=== PATIENT | female | born 1990 | race Caucasian/White ===

== ENCOUNTER 2016-07-03 11:29 | Emergency (ER) | payer MEDICAID ==
--- NOTE | 2016-07-03 11:40 | ER Document Report ---
ED Medical Screen (RME) - General Stated Complaint: WEAKNESS,DARK URINE,ITCHING Notes: 25 yo female 31 weeks , c/o vomiting x 2 days. c/o dark urine. no abdominal pain or vaginal bleeding. + generalized pruritis x 2days, no rash. no fever. children sick with viral symptoms. TRAVEL OUTSIDE OF THE [place] IN LAST 30 DAYS: No - Related Data Allergies/Adverse Reactions: acetaminophen [From Vicodin] Allergy (Verified 07/03/16 11:35) hydrocodone [From Vicodin] Allergy (Verified 07/03/16 11:35)
[2016-07-03] MEDS ORDERED: NORMAL SALINE 1000 ML 1,000 ML IV ONE (12:02)
[2016-07-03] MEDS ORDERED: DIPHENHYDRAMINE HCL 50 MG/ML VIAL IV ONE (12:04)
[2016-07-03] MEDS ORDERED: METOCLOPRAMIDE HCL INJ/PF 10 MG/2 ML SDV IV ONE (12:04)
[2016-07-03 13:14] LABS: AMORPHOUS SEDIMENT,URINE TRACE /HPF; APPEARANCE,URINE CLOUDY; BILIRUBIN,URINE NEGATIVE (NEGATIVE); GLUCOSE, URINE NEGATIVE (NEGATIVE); KETONES,URINE TRACE mg/dL (NEGATIVE); LEUKOCYTE ESTERASE,URINE NEGATIVE (NEGATIVE); NITRITE,URINE NEGATIVE (NEGATIVE); PROTEIN,URINE 30 mg/dL (NEGATIVE)
[2016-07-03 13:17] LABS: ABSOLUTE EOSINOPHILS # (AUTO) 0.1 10^3/uL (0.0-0.6); ABSOLUTE LYMPHOCYTES (AUTO) 1.1 10^3/uL (0.5-4.7); ABSOLUTE MONOCYTES (AUTO) 0.7 10^3/uL (0.1-1.4); BASOPHILS % (AUTO) 0.3 % (0-2); HEMATOCRIT 27.8 % (36.0-47.0); HEMOGLOBIN 9.1 g/dL (12.0-15.5); HGB HCT DIFFERENCE -0.5; LYMPHOCYTES % (AUTO) 10.3 % (13-45); MEAN CORPUSCULAR HEMOGLOBIN 28.9 pg (27.0-33.4); MEAN CORPUSCULAR HGB CONC 32.7 g/dL (32.0-36.0); MEAN CORPUSCULAR VOLUME 88 fl (80-97); RED BLOOD COUNT 3.15 10^6/uL (3.72-5.28); RED CELL DISTRIBUTION WIDTH 14.6 % (11.5-14.0); SEGMENTED NEUTROPHILS % (AUTO) 82.4 % (42-78); WHITE BLOOD COUNT 10.9 10^3/uL (4.0-10.5)
[2016-07-03 15:11] LABS: ALANINE AMINOTRANSFERASE 14 U/L (9-52); ALBUMIN 2.6 g/dL (3.5-5.0); ALKALINE PHOSPHATASE 73 U/L (38-126); ANION GAP 9 (5-19); ASPARTATE AMINO TRANSFERASE 31 U/L (14-36); BILIRUBIN,TOTAL 0.4 mg/dL (0.2-1.3); BLOOD UREA NITROGEN 5 mg/dL (7-20); CARBON DIOXIDE 22 mmol/L (22-30); CHLORIDE 109 mmol/L (98-107); GLUCOSE 80 mg/dL (75-110); LIPASE 41.2 U/L (23-300); POTASSIUM 3.9 mmol/L (3.6-5.0); SODIUM 139.5 mmol/L (137-145); TOTAL PROTEIN 5.9 g/dL (6.3-8.2)
--- NOTE | 2016-07-03 15:40 | ER Document Report ---
ED GI/ - General Chief Complaint: Nausea/Vomiting Stated Complaint: WEAKNESS,DARK URINE,ITCHING Mode of Arrival: Ambulatory Information source: Patient Notes: 25-year-old female presents to the emergency department complaining of intermittently persistent nausea and vomiting over last 2 days. Patient reports her 2 young children have had similar symptoms over the past week which have resolved but now she has similar symptoms. Reports is approximately 31 weeks , . States has been having difficulty keeping oral fluids down and has noted her urine to be dark. Also reports had generalized itchiness yesterday without a rash or any other symptoms but appears to have resolved. Denies fever, blood in emesis or stool, vaginal bleeding or discharge , abdominal or pelvic pain. TRAVEL OUTSIDE OF THE [place] IN LAST 30 DAYS: No - HPI Patient complains to provider of: Vomiting Onset: Yesterday Timing/Duration: Intermittent, Persistent Quality of pain: No pain Severity in ED: Mild Pain Level: Denies Vaginal bleeding (Compared to normal period): None Menstrual period history: Similar symptoms previously: Yes Recently seen / treated by doctor: No - Related Data Allergies/Adverse Reactions: acetaminophen [From Vicodin] Allergy (Verified 07/03/16 11:35) hydrocodone [From Vicodin] Allergy (Verified 07/03/16 11:35) Past Medical History - General Information source: Patient - Social History Smoking Status: Never Smoker Chew tobacco use (# tins/day): No Frequency of alcohol use: None Drug Abuse: [place] Lives with: Family Family History: Reviewed & Not Pertinent Patient has suicidal ideation: No Patient has homicidal ideation: No - Medical History Medical History: Negative Renal/ Medical History: Denies: Hx Peritoneal Dialysis Surgical Hx: Negative - Immunizations Hx Diphtheria, Pertussis, Tetanus Vaccination: Yes Review of Systems - Review of Systems Constitutional: No symptoms reported EENT: No symptoms reported Cardiovascular: No symptoms reported Respiratory: No symptoms reported Gastrointestinal: See HPI Genitourinary: No symptoms reported Female Genitourinary: See HPI Musculoskeletal: No symptoms reported Skin: See HPI Hematologic/Lymphatic: No symptoms reported Neurological/Psychological: No symptoms reported -: Yes All other systems reviewed and negative Physical Exam - Vital signs Vitals: Temp Pulse Resp BP Pulse Ox 97.9 F 98 18 124/68 98 07/03/16 11:36 07/03/16 11:36 07/03/16 11:36 07/03/16 11:36 07/03/16 11:36 Interpretation: Normal - General General appearance: Appears well, Alert In distress: None - HEENT Head: Normocephalic, Atraumatic Eyes: Normal Pupils: PERRL - Respiratory Respiratory status: No respiratory distress Chest status: Nontender Breath sounds: Normal Chest palpation: Normal - Cardiovascular Rhythm: Regular Heart sounds: Normal auscultation Murmur: No Pulses: Normal: Radial, Posterior tibial, Dorsalis pedis Normal capillary refill: Yes - Abdominal Inspection: Normal, Gravid female Distension: No distension Bowel sounds: Normal Tenderness: Nontender. No: Tender, McBurney's point, Vaughn's sign, Guarding, Rebound, Other Organomegaly: No organomegaly - Back Back: Normal, Nontender - Extremities General upper extremity: Normal inspection, Nontender, Normal color, Normal ROM , Normal strength, Normal temperature. No: Tender, Edema General lower extremity: Normal inspection, Nontender, Normal color, Normal ROM , Normal strength, Normal temperature, Normal weight bearing. No: Tender, Edema - Neurological Neuro grossly intact: Yes Cognition: Normal Orientation: AAOx4 [place] Coma Scale Eye Opening: Spontaneous [place] Coma Scale Verbal: Oriented [place] Coma Scale Motor: Obeys Commands Sha Coma Scale Total: 15 Speech: Normal Motor strength normal: LUE, RUE, LLE, RLE Sensory: Normal - Psychological Associated symptoms: Normal affect, Normal mood - Skin Skin Temperature: Warm Skin Moisture: Dry Skin Color: Normal Course - Re-evaluation Re-evalutation: 07/03/16 15:44 Patient hemodynamically stable, in no distress, afebrile. Labs show some mild dehydration otherwise no significant or emergent findings. Patient states feels much better after normal saline bolus and is tolerating oral fluids without difficulty or vomiting after dose of Reglan and Benadryl. Patient appears stable for discharge and agrees with home care, follow-up with PCP/[facility]- [facility], and ED return precautions. - Vital Signs Vital signs: Temp Pulse Resp BP Pulse Ox 98.0 F 84 18 106/56 L 99 07/03/16 16:00 07/03/16 16:00 07/03/16 11:36 07/03/16 16:00 07/03/16 16:00 - Laboratory Result Diagrams: 07/03/16 12:50 07/03/16 14:32 Laboratory results interpreted by me: 07/03/16 07/03/16 07/03/16 12:35 12:50 12:50 WBC 10.9 H RBC 3.15 L Hgb 9.1 L Hct 27.8 L RDW 14.6 H Seg Neutrophils % 82.4 H Lymphocytes % 10.3 L Absolute Neutrophils 9.0 H Chloride BUN Creatinine Calcium Total Protein Albumin Serum HCG, Qual POSITIVE H Urine Protein 30 H Urine Ketones TRACE H Urine Urobilinogen 4.0 H 07/03/16 14:32 WBC RBC Hgb Hct RDW Seg Neutrophils % Lymphocytes % Absolute Neutrophils Chloride 109 H BUN 5 L Creatinine 0.40 L Calcium 8.0 L Total Protein 5.9 L Albumin 2.6 L Serum HCG, Qual Urine Protein Urine Ketones Urine Urobilinogen Discharge - Discharge Clinical Impression: Nausea and vomiting Qualifiers: Vomiting type: unspecified Vomiting Intractability: non-intractable Qualified Code(s): R11.2 - Nausea with vomiting, unspecified Condition: Stable Disposition: HOME, SELF-CARE Instructions: Intravenous (IV) Fluids ([facility]), Vomiting ([facility]), Reglan ([facility]), Nausea or Vomiting, Nonspecific ([facility]) Additional Instructions: Continue drinking plenty of fluids to prevent dehydration. Follow-up with your primary care provider in the next 1-2 days. Return to the emergency department for any worsening symptoms or concerns. Prescriptions: Metoclopramide HCl [Reglan 10 mg Tablet] 10 mg PO Q8HP PRN #10 tablet PRN Reason: Diphenhydramine HCl [Benadryl] 25 mg PO Q8H PRN #15 capsule PRN Reason: Itching Referrals: [facility] [Provider Group] - Follow up tomorrow
[2016-07-03 16:02] VITALS: BP 106/56
== END 2016-07-03 16:02 | disposition home or self-care (01) ==
LOC: ER 11:29
DX: O21.9 Vomiting of pregnancy, unspecified (principal); O99.280 Endocrine, nutritional and metabolic diseases complicating pregnancy, unspecified trimester; E86.0 Dehydration; O26.899 Other specified pregnancy related conditions, unspecified trimester; R39.89 Other symptoms and signs involving the genitourinary system; Z3A.00 Weeks of gestation of pregnancy not specified; Z88.6 Allergy status to analgesic agent; Z88.5 Allergy status to narcotic agent
CPT/HCPCS: 99284; 96361; 96374; 96375; 36415; 83690; 84703; 85025; 80053; 81001; J1200; J2765; J7030

== ENCOUNTER 2016-09-02 01:28 | Inpatient (IN) | payer MEDICAID ==
[2016-09-02 02:10] LABS: APPEARANCE,URINE CLOUDY; BILIRUBIN,URINE NEGATIVE (NEGATIVE); GLUCOSE, URINE NEGATIVE (NEGATIVE); KETONES,URINE NEGATIVE (NEGATIVE); LEUKOCYTE ESTERASE,URINE TRACE (NEGATIVE); NITRITE,URINE NEGATIVE (NEGATIVE); PROTEIN,URINE 30 mg/dL (NEGATIVE); URINE SPECIFIC GRAVITY 1.017; UROBILINOGEN,URINE NEGATIVE mg/dL (<2.0)
[2016-09-02 02:13] LABS: AMNISURE (ROM) POSITIVE (NEGATIVE)
[2016-09-02 02:25] LABS: URINE BARBITURATES SCREEN NEGATIVE; URINE METHADONE SCREEN NEGATIVE; URINE OPIATES LOW NEGATIVE; URINE PHENCYCLIDINE SCREEN NEGATIVE
[2016-09-02 02:33] LABS: ABSOLUTE EOSINOPHILS # (AUTO) 0.1 10^3/uL (0.0-0.6); ABSOLUTE LYMPHOCYTES (AUTO) 2.1 10^3/uL (0.5-4.7); ABSOLUTE MONOCYTES (AUTO) 0.8 10^3/uL (0.1-1.4); ABSOLUTE NEUT (AUTO) 11.2 10^3/uL (1.7-8.2); BASOPHILS % (AUTO) 0.2 % (0-2); HEMATOCRIT 31.6 % (36.0-47.0); HGB HCT DIFFERENCE -1.6; LYMPHOCYTES % (AUTO) 14.7 % (13-45); MEAN CORPUSCULAR HEMOGLOBIN 25.3 pg (27.0-33.4); MEAN CORPUSCULAR HGB CONC 31.8 g/dL (32.0-36.0); MEAN CORPUSCULAR VOLUME 80 fl (80-97); MONOCYTES % (AUTO) 5.9 % (3-13); RED BLOOD COUNT 3.97 10^6/uL (3.72-5.28); RED CELL DISTRIBUTION WIDTH 16.3 % (11.5-14.0); SEGMENTED NEUTROPHILS % (AUTO) 78.2 % (42-78); WHITE BLOOD COUNT 14.3 10^3/uL (4.0-10.5)
[2016-09-02] MEDS ORDERED: EPHEDRINE SULFATE INJ 50 MG/1 ML AMPULE ONE (02:43)
[2016-09-02] MEDS ORDERED: OXYTOCIN/NORMAL SALINE 20 UNIT/1,000 ML RTUINJ ONE ×2 (02:43→05:44)
[2016-09-02] MEDS ORDERED: MISOPROSTOL 0.2 MG TABLET ONE (02:43)
[2016-09-02] MEDS ORDERED: LIDOCAINE 1% INJ-PF (10 MG/ML) 30 ML SDV ONE (02:43)
[2016-09-02] MEDS ORDERED: FENTANYL/BUPIVACAINE/NS/PF 200 MCG/100 ML RTUINJ EPI ONE (02:43)
[2016-09-02] MEDS ORDERED: BUPIVACAINE HCL 0.25 % INJ/PF (2.5 MG/1 ML) 30 ML VIAL ONE (02:44)
[2016-09-02] MEDS: RINGERS SOLUTION,LACTATED 1,000 ML IV PRN ×3 (04:04→05:39)
[2016-09-02] MEDS ORDERED: OXYTOCIN/NORMAL SALINE 20 UNIT/1,000 ML RTUINJ IV PRN (05:37)
[2016-09-02] MEDS ORDERED: MAG HYDROX/AL HYDROX/SIMETH SUSP 30 ML UDCUP ONE (05:44)
--- NOTE | 2016-09-02 08:01 | L&D Flow Sheet ---
LD Flowsheet Datetime Report Generated by CPN: 09/02/2016 08:00 Datetime: 09/02/2016 07:47 NBP Sys/Marnie/Mean (mmHg): 113 (QS system process) : 69 (QS system process) : 85 (QS system process) Pulse: 87 (QS system process) Datetime: 09/02/2016 07:32 NBP Sys/Marnie/Mean (mmHg): 116 (QS system process) : 73 (QS system process) : 89 (QS system process) Pulse: 98 (QS system process) Datetime: 09/02/2016 07:17 NBP Sys/Amrnie/Mean (mmHg): 108 (QS system process) : 76 (QS system process) : 88 (QS system process) Pulse: 93 (QS system process) Datetime: 09/02/2016 07:02 NBP Sys/Marnie/Mean (mmHg): 104 (QS system process) : 54 (QS system process) : 75 (QS system process) Pulse: 111 (QS system process) Datetime: 09/02/2016 06:48 Vital Signs Stage of : Recovery (Darlene Keen, RN) Datetime: 09/02/2016 06:47 NBP Sys/Marnie/Mean (mmHg): 118 (QS system process) : 66 (QS system process) : 86 (QS system process) Pulse: 102 (QS system process) Stage 2 Comments: delivery of 3 vessel cord and intact placenta in hager presentation. (Darleneleola Keen, WILLI) LaborFlag: Labor (QS system process) Datetime: 09/02/2016 06:43 Stage 2 Comments: Delivery of viable male, placed directly to maternal abdomen, cord clamped and cut. Cord blood obtained. (Darlene Keen RN) Datetime: 09/02/2016 06:40 I/O Interventions: Chávez Discontinued (Darlene Keen RN) Stage 2 Pushing: Coached on Pushing (Darlene Keen RN) Pushing Position: Pushing with Contractions (Darlene Keen RN) Pushing Progress: Descent with Pushing; Perineal Bulging; Rectal Bulging; Presenting Part Visible; Pushing Effectively with Contractions (Darlene Keen RN) Stage 2 Comments: Dr. Dailey at bedside for delivery. Nursery requested (Darlene Keen RN) Datetime: 09/02/2016 06:39 Stage 2 Comments: placed in stirrups (Darlene Tevinsmann, RN) Datetime: 09/02/2016 06:32 NBP Sys/Marnie/Mean (mmHg): 121 (QS system process) : 79 (QS system process) : 95 (QS system process) Pulse: 94 (QS system process) Respirations: 18 (Darlene Keen, RN) LaborFlag: Labor (QS system process) Datetime: 09/02/2016 06:30 Medications Pitocin (milliunit): Pitocin Remains (milliunits) @ (Annotations: 2) (Darlene Tevinsmann, RN) Communication Communication Comments: Dr. Dailey notified of imminent delivery (Darlene Kossmann, RN) Datetime: 09/02/2016 06:29 Uterine Activity Monitor Mode: External; Palpation (Darlene Tevinsmann, RN) Frequency (min): 4-6 (Darlene Tevinsmann, RN) Quality: Moderate (Darlene Kossmann, RN) Duration (sec): 50-100 (Darlene Tevinsmann, RN) Resting Tone (Palpate): Relaxed (Darlene Tevinsmann, RN) Assessment A Monitor Mode: External US (Darlene Masterann, RN) FHR Baseline Rate : 120 (Darlene Tevinann, RN) Variability: Moderate 6-25 bpm (Darlene Tevinsmann, RN) Decelerations: Early; Variable (Darlene Tevinsmann, RN) Datetime: 09/02/2016 06:28 Vaginal Exam Dilatation (cm): 10.0 (Darlene Keen, RN) Effacement (%): 100 (Darlene Keen, RN) Station: 2 (Darlene Thaomariusz, RN) Exam by: RN Osmani (Darlene Keen, RN) Datetime: 09/02/2016 06:17 NBP Sys/Marnie/Mean (mmHg): 126 (QS system process) : 81 (QS system process) : 96 (QS system process) Pulse: 95 (QS system process) LaborFlag: Labor (QS system process) Datetime: 09/02/2016 06:15 Medications Pitocin (milliunit): Pitocin Remains (milliunits) @ (Annotations: 2) (Darlene Keen, WILLI) Datetime: 09/02/2016 06:14 Uterine Activity Monitor Mode: External; Palpation (Darlene Keen RN) Frequency (min): 5-6 (Darlene Keen RN) Quality: Moderate (Darlene Keen RN) Duration (sec): 60-110 (Darlene Keen RN) Resting Tone (Palpate): Relaxed (Darlene Kossmann, RN) Assessment A Monitor Mode: External US (Darlene Keen, RN) FHR Baseline Rate : 115 (Darlene Keen, RN) Variability: Moderate 6-25 bpm (Darlene Keen, RN) Decelerations: Early (Darlene Osmani, RN) Datetime: 09/02/2016 06:02 NBP Sys/Marnie/Mean (mmHg): 129 (QS system process) : 81 (QS system process) : 100 (QS system process) Pulse: 90 (QS system process) Respirations: 16 (Darlene Masterann, RN) Pain Pain Scale: 0 (Darleneleola Keen, RN) Pain Presence: None/Denies (Darleneleola Keen, RN) Pain Type: N/A (Darlene Keen, RN) Medications Pitocin (milliunit): Pitocin Started (milliunits) @; Pitocin 20 Units in 1000ml NS (Darleneleola Keen, RN) Antiemetics/Antacids: Maalox PO (ml) @ (Annotations: 30) (Darleneleola Keen, WILLI) LaborFlag: Labor (QS system process) Datetime: 09/02/2016 06:00 Uterine Activity Monitor Mode: External; Palpation (Darlene Kossmann, RN) Frequency (min): 3-5 (Darlene Kossmann, RN) Quality: Mild/Moderate (Darlene Kossmann, RN) Duration (sec): 40-110 (Darlene Kossmann, RN) Resting Tone (Palpate): Relaxed (Darlene Kossmann, RN) Assessment A Monitor Mode: External US (Darlene Kossmann, RN) FHR Baseline Rate : 115 (Darlene Kossmann, RN) Variability: Moderate 6-25 bpm (Darlene Kossmann, RN) Accelerations: 15X15 (Darlene Kossmann, RN) Decelerations: None (Darlene Kossmann, RN) Datetime: 09/02/2016 05:50 Patient Care Comments: complains of indigestion (Darlene Abarcayazminann, RN) Datetime: 09/02/2016 05:45 Uterine Activity Monitor Mode: External; Palpation (Darlene Keen, RN) Frequency (min): 1-7 (Darlene Keen, RN) Quality: Mild/Moderate (Darlene Keen, RN) Duration (sec): 40-100 (Darlene Keen, WILLI) Resting Tone (Palpate): Relaxed (Darlene Keen, RN) Assessment A Monitor Mode: External US (Darlene Keen, RN) FHR Baseline Rate : 115 (Darlene Keen, RN) Variability: Moderate 6-25 bpm (Darlene Keen, RN) Accelerations: 15X15 (Darlene Thaoann, RN) Decelerations: Variable (Darlene Thaoann, RN) Datetime: 09/02/2016 05:33 NBP Sys/Marnie/Mean (mmHg): 126 (QS system process) : 76 (QS system process) : 95 (QS system process) Pulse: 79 (QS system process) LaborFlag: Labor (QS system process) Datetime: 09/02/2016 05:30 Uterine Activity Monitor Mode: External; Palpation (Darlene Kossmann, RN) Frequency (min): 3-8 (Darlene Kossmann, RN) Quality: Mild (Darlene Kossmann, RN) Duration (sec): 50-90 (Darlene Kossmann, RN) Resting Tone (Palpate): Relaxed (Darlene Kossmann, RN) Assessment A Monitor Mode: External US (Darlene Tevinsmann, RN) FHR Baseline Rate : 125 (Darlene Kossmann, RN) Variability: Moderate 6-25 bpm (Darlene Kossmann, RN) Decelerations: Early; Variable (Darlene Kossmann, RN) Communication Communication Comments: Discussed SVE with Dr. Dailey. Plans to start Pitocin in 15 minutes if tracing remains stable. (Darlene Tevinsmann, RN) Datetime: 09/02/2016 05:25 Vaginal Exam Dilatation (cm): 5.0 (Darlene Tevinsmann, RN) Effacement (%): 80 (Darlene Tevinsmann, RN) Station: 0 (Darlene Keen, RN) Exam by: RN Osmani (Darlene Keen, RN) Datetime: 09/02/2016 05:17 NBP Sys/Marnie/Mean (mmHg): 120 (QS system process) : 77 (QS system process) : 93 (QS system process) Pulse: 81 (QS system process) LaborFlag: Labor (QS system process) Datetime: 09/02/2016 05:15 Uterine Activity Monitor Mode: External; Palpation (Darlene Keen RN) Frequency (min): 5-7 (Darlene Keen RN) Quality: Mild (Darlene Keen RN) Duration (sec): 50-80 (Darlene Keen RN) Resting Tone (Palpate): Relaxed (Darlene Keen RN) Assessment A Monitor Mode: External US (Darlene Keen, RN) FHR Baseline Rate : 115 (Darlene Keen, RN) Variability: Moderate 6-25 bpm (Darlene Keen, RN) Accelerations: 15X15 (Darlene Keen, RN) Decelerations: None (Darlene Keen, RN) Datetime: 09/02/2016 05:02 NBP Sys/Marnie/Mean (mmHg): 120 (QS system process) : 71 (QS system process) : 90 (QS system process) Pulse: 81 (QS system process) LaborFlag: Labor (QS system process) Datetime: 09/02/2016 05:00 Uterine Activity Monitor Mode: External; Palpation (Darlene Kossmann, RN) Frequency (min): 4-8 (Darlene Kossmann, RN) Quality: Mild (Darlene Kossmann, RN) Duration (sec): 40-90 (Darlene Kossmann, RN) Resting Tone (Palpate): Relaxed (Darlene Kossmann, RN) Assessment A Monitor Mode: External US (Darlene Kossmann, RN) FHR Baseline Rate : 120 (Darlene Kossmann, RN) Variability: Moderate 6-25 bpm (Darlene Kossmann, RN) Accelerations: 10X10 (Darlene Kossmann, RN) Decelerations: Variable (Darlene Kossmann, RN) Datetime: 09/02/2016 04:58 Patient Position/Activity: Right Tilt (Darlene Tevinsmann, RN) Datetime: 09/02/2016 04:47 NBP Sys/Marnie/Mean (mmHg): 98 (QS system process) : 53 (QS system process) : 70 (QS system process) Pulse: 93 (QS system process) LaborFlag: Labor (QS system process) Datetime: 09/02/2016 04:45 Uterine Activity Monitor Mode: External; Palpation (Darlene Keen RN) Frequency (min): 1.5-8 (Darlene Kossmann, RN) Quality: Mild (Darlene Kossmann, RN) Duration (sec): 30-90 (Darlene Tevinsmann, RN) Resting Tone (Palpate): Relaxed (Darlene Tevinsmann, RN) Assessment A Monitor Mode: External US (Darleneleola Keen, RN) FHR Baseline Rate : 125 (Darlene Tevinsmann, RN) Variability: Moderate 6-25 bpm (Darlene Kossmann, RN) Accelerations: 15X15 (Darlene Tevinsmann, RN) Decelerations: None (Darlene Tevinsmann, RN) Datetime: 09/02/2016 04:32 NBP Sys/Marnie/Mean (mmHg): 100 (QS system process) : 58 (QS system process) : 75 (QS system process) Pulse: 88 (QS system process) Respirations: 16 (Darlene Masterann, RN) Temperature (F): 97.9 (Darlene Osmani, RN) Temperature (C): 36.6 (QS system process) Temperature Route: Oral (Dralene Keen, RN) Pain Pain Scale: 0 (Darlene Keen, WILLI) Pain Presence: None/Denies (Darlene Keen RN) Pain Type: N/A (Darlene Keen RN) LaborFlag: Labor (QS system process) Datetime: 09/02/2016 04:30 Uterine Activity Monitor Mode: External; Palpation (Darlene Keen RN) Frequency (min): rare (Darlene Kossmann, RN) Quality: Mild (Darlene Thaomariusz, RN) Duration (sec): 70-80 (Darlene Thaomariusz, RN) Resting Tone (Palpate): Relaxed (Darlene Keen, RN) Assessment A Monitor Mode: External US (Darlene Thaomariusz, RN) FHR Baseline Rate : 130 (Darlene Thaomariusz, RN) Variability: Moderate 6-25 bpm (Darlene Thaomariusz, RN) Decelerations: None (Darlene Keen, RN) Datetime: 09/02/2016 04:17 NBP Sys/Marnie/Mean (mmHg): 104 (QS system process) : 58 (QS system process) : 78 (QS system process) Pulse: 92 (QS system process) LaborFlag: Labor (QS system process) Datetime: 09/02/2016 04:15 Uterine Activity Monitor Mode: External; Palpation (Darlene Keen, RN) Monitor Interventions for UA: [place] Adjusted (Darlene Keen, RN) Frequency (min): rare (Darlene Keen, RN) Quality: Mild (Darleneleola Keen, RN) Duration (sec): 30-40 (Darlene Keen, RN) Resting Tone (Palpate): Relaxed (Darlene Keen, RN) Contraction Comments: [place]co adjusted (Darleneleola Keen, RN) Assessment A Monitor Mode: External US (Darlene Keen, RN) FHR Baseline Rate : 130 (Darlene Keen, RN) Variability: Moderate 6-25 bpm (Darlene Kossmann, RN) Accelerations: 15X15 (Darlene Tevinsmann, RN) Decelerations: Variable (Darlene Keen, RN) Datetime: 09/02/2016 04:03 NBP Sys/Marnie/Mean (mmHg): 105 (QS system process) : 57 (QS system process) : 72 (QS system process) Pulse: 80 (QS system process) LaborFlag: Labor (QS system process) Datetime: 09/02/2016 04:00 Uterine Activity Monitor Mode: External; Palpation (Darlene Tevinsmann, RN) Frequency (min): 2-4 (Darlene Kossmann, RN) Quality: Mild (Darlene Kossmann, RN) Duration (sec): 50-70 (Darlene Kossmann, RN) Resting Tone (Palpate): Relaxed (Darlene Tevinsmann, RN) Assessment A Monitor Mode: External US (Darlene Abarcasmann, RN) FHR Baseline Rate : 115 (Darlene Tevinsmann, RN) Variability: Moderate 6-25 bpm (Darlene Kossmann, RN) Accelerations: 15X15 (Darlene Kossmann, RN) Decelerations: None (Darlene Tevinsmann, RN) Datetime: 09/02/2016 03:47 NBP Sys/Marnie/Mean (mmHg): 97 (QS system process) : 55 (QS system process) : 74 (QS system process) Pulse: 83 (QS system process) LaborFlag: Labor (QS system process) Datetime: 09/02/2016 03:45 Uterine Activity Monitor Mode: External; Palpation (Darlene Kossmann, RN) Frequency (min): 7-10 (Darlene Keen, RN) Quality: Mild (Darlene Masterann, RN) Duration (sec): 70-90 (Darlene Masterann, RN) Resting Tone (Palpate): Relaxed (Darlene Kossmann, RN) Assessment A Monitor Mode: External US (Darlene Keen, RN) FHR Baseline Rate : 120 (Darlenetyron Keen RN) Variability: Moderate 6-25 bpm (Darlene Keen RN) Accelerations: 15X15 (Darlene Keen RN) Decelerations: Late (Darlene Keen RN) Datetime: 09/02/2016 03:37 Vaginal Exam Dilatation (cm): 4.5 (Darlene Keen RN) Effacement (%): 80 (Darlene Keen RN) Station: 0 (Darlene Keen RN) Exam by: WILLI Keen (Darlene Keen RN) I/O Interventions: Chávez Cath Inserted (Darlene Keen RN) Datetime: 09/02/2016 03:32 NBP Sys/Marnie/Mean (mmHg): 104 (QS system process) : 56 (QS system process) : 76 (QS system process) Pulse: 90 (QS system process) LaborFlag: Labor (QS system process) Datetime: 09/02/2016 03:31 Anesthesia Level Check: T9 (Darlene Kossmann, RN) Datetime: 09/02/2016 03:30 Uterine Activity Monitor Mode: Palpation (Dalrene Kossmann, RN) Frequency (min): 4-6 (Darlene Kossmann, RN) Quality: Mild (Darlene Kossmann, RN) Duration (sec): 40-70 (Darlene Kossmann, RN) Resting Tone (Palpate): Relaxed (Darlene Kossmann, RN) Contraction Comments: palpation utilized during epidural (Darlene Kossmann, RN) Assessment A Monitor Mode: External US (Darlene Kossmann, RN) FHR Baseline Rate : 125 (Darlene Kossmann, RN) Variability: Moderate 6-25 bpm (Darlene Kossmann, RN) Accelerations: 15X15 (Darlene Kossmann, RN) Decelerations: None (Darlene Kossmann, RN) Comments: off monitor briefly for epidural placement due to maternal positioning (Darlene Kossmann, RN) Datetime: 09/02/2016 03:27 NBP Sys/Marnie/Mean (mmHg): 112 (QS system process) : 57 (QS system process) : 75 (QS system process) Pulse: 99 (QS system process) Respirations: 18 (Darlene Keen RN) LaborFlag: Labor (QS system process) Datetime: 09/02/2016 03:20 NBP Sys/Marnie/Mean (mmHg): 102 (QS system process) : 54 (QS system process) : 73 (QS system process) Pulse: 93 (QS system process) LaborFlag: Labor (QS system process) Datetime: 09/02/2016 03:19 NBP Sys/Marnie/Mean (mmHg): 115 (QS system process) : 55 (QS system process) : 77 (QS system process) Pulse: 100 (QS system process) LaborFlag: Labor (QS system process) Datetime: 09/02/2016 03:18 Pulse: 108 (QS system process) SpO2 (%): 99 (QS system process) LaborFlag: Labor (QS system process) Datetime: 09/02/2016 03:17 Epidural Procedure Other: Pump Started (Darlene Kossmann, RN) Datetime: 09/02/2016 03:16 NBP Sys/Marnie/Mean (mmHg): 119 (QS system process) : 63 (QS system process) : 82 (QS system process) Pulse: 92 (QS system process) LaborFlag: Labor (QS system process) Datetime: 09/02/2016 03:15 NBP Sys/Marnie/Mean (mmHg): 125 (QS system process) : 58 (QS system process) : 83 (QS system process) Pulse: 111 (QS system process) LaborFlag: Labor (QS system process) Datetime: 09/02/2016 03:14 NBP Sys/Marnie/Mean (mmHg): 135 (QS system process) : 85 (QS system process) : 104 (QS system process) Pulse: 118 (QS system process) LaborFlag: Labor (QS system process) Datetime: 09/02/2016 03:13 NBP Sys/Marnie/Mean (mmHg): 133 (QS system process) : 84 (QS system process) : 103 (QS system process) Pulse: 101 (QS system process) Pulse: 97 (QS system process) SpO2 (%): 99 (QS system process) LaborFlag: Labor (QS system process) Datetime: 09/02/2016 03:12 NBP Sys/Marnie/Mean (mmHg): 125 (QS system process) : 76 (QS system process) : 94 (QS system process) Pulse: 93 (QS system process) Epidural Procedure: Loading Dose (Darlene Keen RN) LaborFlag: Labor (QS system process) Datetime: 09/02/2016 03:11 NBP Sys/Marnie/Mean (mmHg): 125 (QS system process) : 83 (QS system process) : 100 (QS system process) Pulse: 87 (QS system process) Epidural Procedure: Test Dose (Darlene Tevinsmann, RN) LaborFlag: Labor (QS system process) Datetime: 09/02/2016 03:10 Epidural Procedure: Cath Placed (Darlene Kossmann, RN) Datetime: 09/02/2016 03:08 Pulse: 97 (QS system process) SpO2 (%): 100 (QS system process) LaborFlag: Labor (QS system process) Datetime: 09/02/2016 03:06 Procedure TIME OUT Procedure Type: epidural (Darlene Keen, RN) Procedure Verify: Correct Patient Identity; Correct Side and Site are Marked; Accurate Procedure Consent Form; Agreement on Procedure to be Done; Correct Patient Position (Darlene Keen, RN) Anesthesia Anesthesia Plans: Epidural (Darlene Thaomariusz, RN) Epidural Positioning: Sitting (Darlene Abarcasantino, RN) Anesthesia Comments: Dr. Ramírez at bedside (Darlene Keen, RN) Datetime: 09/02/2016 03:03 NBP Sys/Marnie/Mean (mmHg): 123 (QS system process) : 80 (QS system process) : 96 (QS system process) Pulse: 88 (QS system process) LaborFlag: Labor (QS system process) Datetime: 09/02/2016 03:00 Uterine Activity Monitor Mode: External; Palpation (Darlene Keen, RN) Frequency (min): irregular with uterine irritability (Darlene Keen, WILLI) Quality: Mild (Darlene Keen, WILLI) Duration (sec): 40-80 (Darlene Keen, RN) Resting Tone (Palpate): Relaxed (Darlene Keen, RN) Assessment A Monitor Mode: External US (Darlene Keen RN) FHR Baseline Rate : 125 (Darlene Keen, WILLI) Variability: Moderate 6-25 bpm (Darlene Keen RN) Decelerations: None (Darlene Keen, RN) Datetime: 09/02/2016 02:51 Anesthesia Comments: Dr. Desiree aware of epidural request (Darlene Keen, WILLI) Datetime: 09/02/2016 02:45 Uterine Activity Monitor Mode: External; Palpation (Darlene Keen RN) Frequency (min): 3-6 (Darlene Kossmann, RN) Quality: Mild (Darlene Thaoann, RN) Duration (sec): 40-90 (Darlene Masterann, RN) Resting Tone (Palpate): Relaxed (Darlene Thaoann, RN) Assessment A Monitor Mode: External US (Darlene Keen, RN) FHR Baseline Rate : 130 (Darlene Thaoann, RN) Variability: Moderate 6-25 bpm (Darlene Thaoann, RN) Accelerations: 15X15 (Darlene Thaoann, RN) Decelerations: Variable (Darlene Thaoann, RN) Datetime: 09/02/2016 02:34 NBP Sys/Marnie/Mean (mmHg): 119 (QS system process) : 77 (QS system process) : 94 (QS system process) Pulse: 81 (QS system process) LaborFlag: Labor (QS system process) Datetime: 09/02/2016 02:30 Uterine Activity Monitor Mode: External; Palpation [facility]) Frequency (min): irregular (Darlene Kossmann, RN) Quality: Mild (Darlene Kossmann, RN) Duration (sec): 30-50 (Darlene Kossmann, RN) Resting Tone (Palpate): Relaxed (Darlene Kossmann, RN) Assessment A Monitor Mode: External US (Darlene Tevinann, RN) FHR Baseline Rate : 125 (Darlene Kossmann, RN) Variability: Moderate 6-25 bpm (Darlene Tevinsmann, RN) Accelerations: 15X15 (Darlene Keen RN) Decelerations: None (Darlene Keen, RN) Datetime: 09/02/2016 02:20 Vital Signs Stage of : Labor (Darlene Keen, WILLI) Pain Pain Scale: 4 (Darlene Keen RN) Pain Presence: Intermittent (Darlene Keen RN) Pain Type: Contraction (Darlene Keen RN) Pain Location: Abdomen (Darlene Keen RN) Pain Relief Measures: Comfort Measures (Annotations: plan to bolus for epidural ) (Darlene Keen RN) Pain Coping: Talking Through Contractions; Breathing Through Contractions; Requesting Pain Medication or Epidural (Darlene Keen RN) Patient Care IV/Blood Work: IV Started; IV Bolus Started; IV Bolus Given ml @ (Annotations: 1000ml) (Darlene Keen RN) LaborFlag: Labor (QS system process) Datetime: 09/02/2016:15 Uterine Activity Monitor Mode: External; Palpation (Darlene Kossmann, RN) Frequency (min): irregular (Darlene Tevinsmann, RN) Quality: Mild (Darlene Kossmann, RN) Duration (sec): 50-80 (Darlene Kossmann, RN) Resting Tone (Palpate): Relaxed (Darlene Kossmann, RN) Assessment A Monitor Mode: External US (Darlene Tevinsmann, RN) FHR Baseline Rate : 120 (Darlene Kossmann, RN) Variability: Moderate 6-25 bpm (Darlene Kossmann, RN) Accelerations: 15X15 (Darlene Kossmann, RN) Decelerations: None (Darlene Kossmann, RN) Maternal Assessment Level of Consciousness: Fully Conscious (Darlene Kossmann, RN) DTR's/Clonus: DTRs 2+; No Clonus (Darlene Tevinsmann, RN) Headache: Denies (Darlene Tevinsmann, RN) Breath Sounds, Left: Clear and Equal (Darlene Tevinsmann, RN) Breath Sounds, Right: Clear and Equal (Darlene Kossmmariusz, RN) Nausea/Vomiting: Denies (Darlene Thaomariusz, RN) RUQ Epigastric Pain: Denies (Darlene Keen, RN) Datetime: 09/02/2016 02:03 NBP Sys/Marnie/Mean (mmHg): 124 (QS system process) : 79 (QS system process) : 97 (QS system process) Pulse: 87 (QS system process) Datetime: 09/02/2016 02:00 Procedures: Consents Signed (Darlene Keen, RN) Teaching Instructional Method: Verbal; Patient Instructed; Family/Support Person Instructed; Verbalized Understanding (Darlene Keen RN) Plan of Care: Plan of Care Discussed; Vaginal Delivery; Labor (Darlene Keen RN) Unit Routine: [place] to Room; Call Muñiz; Bed; Visiting Policy; Waiting Areas; Consents Signed; Monitoring (Darlene Keen RN) Labor/Induction: Labor Stages; Augmentation; Interventions (Darlene Keen RN) Pain Management: Epidural; Pain Scale/Goals; Comfort Measures (Darlene Keen RN) Medications: Pitocin (Darlene Keen RN) PTL/PROM: Hydration; Signs/Symptoms of Infection; Expected Outcomes (Darlene Keen RN) Related: Common Discomforts of (Darlene Keen RN) Communication Communication Comments: Dr. Dailey notified of admission, orders for epidural and admission received. (Darlene Keen RN) Datetime: 09/02/2016 01:50 Vaginal Exam Dilatation (cm): 3.5 (Darlene Keen RN) Effacement (%): 75 (Darlene Keen RN) Station: -2 (Darlene Keen RN) Exam by: WILLI Keen (Darlene Keen RN) Membrane Status: Ruptured (Darlene Keen RN) Membranes Ruptured Date/Time: 09/02/2016 00:30 (Darlene Keen RN) Membranes Rupture Method: Spontaneous (Darlene Keen RN) Amniotic Fluid Color: Clear (Darlene Keen RN) Amniotic Fluid Amount: Moderate (Darlene Keen RN) Amniotic Fluid Odor: Normal (Darlene Keen RN) Vaginal Bleeding: None (Darlene Keen RN) Carroll's Score Dilatation (cm): 3-4 cms (Darlene Keen RN) Effacement: 60-70_ effaced (Darlene Keen RN) Station: minus 2 (Darlene Keen RN) Consistency: Soft (Darlene Keen RN) Position: Posterior (Darlene Keen RN) Total Carroll's Score: 7 (QS system process) : 5-8 = Small percentage of induction failure (QS system process) Maternal Assessment Level of Consciousness: Fully Conscious (Darlene Keen RN)
[2016-09-02] MEDS ORDERED: OXYTOCIN/NORMAL SALINE 1,000 ML IV PRN (09:07)
[2016-09-02] MEDS ORDERED: ACETAMINOPHEN WITH CODEINE #3 TABLET PO PRN (09:07)
[2016-09-02] MEDS ORDERED: DIBUCAINE 1% OINTMENT 28 GM TP PRN (09:07)
[2016-09-02] MEDS ORDERED: ZOLPIDEM TARTRATE 5 MG TABLET PO PRN (09:07)
[2016-09-02] MEDS ORDERED: DIPH/PERTUSS(ACELL)/TETANUS VAC/PF 0.5 ML SYR (>=10YO) IM PRN (09:07)
[2016-09-02] MEDS ORDERED: BENZOCAINE/MENTHOL AEROSOL SPRAY 56 ML TOP PRN (09:07)
[2016-09-02] MEDS ORDERED: MEASLES,MUMPS&RUBELLA VACC/PF 0.5 ML VIAL SUBCUT PRN (09:07)
--- NOTE | 2016-09-02 09:55 | Admission Physical ---
Datetime Report Generated by CPN: 09/02/2016 09:54 CURRENT ADMISSION Hx Assessment: The History has been Reviewed and is Current Chief Complaint: Uterine Contractions; Suspected Ruptured Membranes Indication for Induction: Not Applicable Admit Plan: Admit to Unit ALLERGIES Medication Allergies: Yes Medication Allergies: hydrocodone (09/02/2016); acetaminophen (09/02/2016) Medication Allergies: hydrocodone (07/03/2016); acetaminophen (07/03/2016) Latex: No Latex Allergies Food Allergies: denies Environmental Allergies: denies OBSTETRICAL HISTORY EDC: 09/04/2016 00:00 : 4 Para: 3 Term: 3 : 0 SAB: 0 IAB: 0 Livin Gestational Diabetes: No Rh Sensitization: No Incompetent Cervix: No PAUL: No Infertility: No ART Treatment: No Uterine Anomaly: No IUGR: No Hx Previous C/S: No Macrosomia: No Hx Loss/Stillborn: No PIH: No Hx : No Placenta Previa/Abruption: No Depression/PP Depression: No PTL/PROM: No Post Hemorrhage: No Current Procedures: Ultrasound; NST Obstetrical History Comments: g1- 2007, , male g2- 2008, , male g3-2015, , male g4-current SEE RECORDS Alcohol: No Marijuana : No Cocaine: No Other Illicit Drugs: No Cigarettes: Never Smoker. 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 Heart Disease: No Hosp/Surgery: Yes Autoimmune Disorder: No Anesthetic Complications: No Kidney Disease: No Abnormal Pap Smear: No Neuro/Epilepsy: No Psychiatric Disorders: No Other Medical Diseases: No Hepatitis/Liver Disease: No Significant Family History: No Varicosities/Phlebitis: No Trauma/Violence : No Thyroid Dysfunction: No Medical History Comments: childbirth x 3 INFECTIOUS HISTORY Gonorrhea: No Genital Herpes: No Chlamydia: No Tuberculosis: No Syphilis: No Hepatitis: No HIV/AIDS Exposure: No Rash or Viral Illness: No HPV: No PHYSICAL EXAM General: Normal HEENT: Deferred Neurologic: Deferred Thyroid: Deferred Heart: Normal Lungs: Normal Back: Deferred Abdomen: Normal Genitourinary Exam: Normal Extremities: Normal DTRs: Normal Pelvic Type: Adequate Vital Signs: Reviewed; Within Normal Limits VAGINAL EXAM Contraction Comments: irreg MEMBRANES Membranes: Intact FETUS A EGA: 39.5 FHR- Baseline: 120 Variability: Moderate 6-25bpm Accelerations: 15X15 Decelerations: Early FHR Category: Category II Admit Comment: Term SROM. Pitocin as necessary. poor care PLANS FOR LABOR AND DELIVERY Labor and Delivery: None Pain Management: Epidural Feeding Preference: Both Benefit of Breast Feed Discussed: Yes Circumcision: Yes INFORMED CONSENT Signature: with User ID: [email or web address]
[2016-09-02] MEDS: IBUPROFEN 800 MG TABLET PO SCH ×2 (13:20→22:01)
[2016-09-02] MEDS: SENNOSIDES/DOCUSATE 8.6-50 MG 1 EACH TABLET PO SCH (17:24)
[2016-09-02] MEDS: PRENATAL VITAMIN W-O CA NO5/FE FUMARATE/FA CAPSULE PO SCH (17:24)
[2016-09-02] MEDS: DOCUSATE SODIUM 100 MG CAPSULE PO SCH ×2 (17:24→17:29)
[2016-09-02] MEDS: FERROUS SULFATE 325 MG TABLET PO SCH ×2 (17:24→17:29)
[2016-09-02] MEDS: ACETAMINOPHEN WITH CODEINE #3 TABLET PO PRN (17:32)
--- NOTE | 2016-09-02 19:01 | L&D Flow Sheet ---
LD Flowsheet Datetime Report Generated by CPN: 09/02/2016 19:00 Datetime: 09/02/2016 09:32 NBP Sys/Marnie/Mean (mmHg): 103 (QS system process) : 58 (QS system process) : 75 (QS system process) Pulse: 97 (QS system process) Datetime: 09/02/2016 09:17 NBP Sys/Marnie/Mean (mmHg): 112 (QS system process) : 62 (QS system process) : 84 (QS system process) Pulse: 105 (QS system process) Datetime: 09/02/2016 09:02 NBP Sys/Marnie/Mean (mmHg): 109 (QS system process) : 68 (QS system process) : 84 (QS system process) Pulse: 93 (QS system process) Datetime: 09/02/2016 08:47 NBP Sys/Marnie/Mean (mmHg): 106 (QS system process) : 57 (QS system process) : 75 (QS system process) Pulse: 106 (QS system process) Datetime: 09/02/2016 08:32 NBP Sys/Marnie/Mean (mmHg): 113 (QS system process) : 65 (QS system process) : 84 (QS system process) Pulse: 90 (QS system process) Datetime: 09/02/2016 08:17 NBP Sys/Marnie/Mean (mmHg): 119 (QS system process) : 71 (QS system process) : 88 (QS system process) Pulse: 86 (QS system process) Datetime: 09/02/2016 08:02 NBP Sys/Marnie/Mean (mmHg): 121 (QS system process) : 70 (QS system process) : 86 (QS system process) Pulse: 100 (QS system process) Datetime: 09/02/2016 07:47 NBP Sys/Marnie/Mean (mmHg): 113 (QS system process) : 69 (QS system process) : 85 (QS system process) Pulse: 87 (QS system process) Datetime: 09/02/2016 07:32 NBP Sys/Marnie/Mean (mmHg): 116 (QS system process) : 73 (QS system process) : 89 (QS system process) Pulse: 98 (QS system process) Datetime: 09/02/2016 07:17 NBP Sys/Marnie/Mean (mmHg): 108 (QS system process) : 76 (QS system process) : 88 (QS system process) Pulse: 93 (QS system process) Datetime: 09/02/2016 07:02 NBP Sys/Marnie/Mean (mmHg): 104 (QS system process) : 54 (QS system process) : 75 (QS system process) Pulse: 111 (QS system process)
--- NOTE | 2016-09-03 06:01 | L&D Current Admission ---
Current Admit Datetime Report Generated by CPN: 09/03/2016 06:00 ADMISSION INFORMATION Current Admit Date/Time: 09/02/2016 02:00 (09/02/2016 02:13:Darlene Keen RN) Reason for Admission: Rupture of Membranes (09/02/2016 02:13:Darlene Keen RN) Chief Complaint: Suspected Rupture of Membranes (09/02/2016 02:13:Darlene Keen RN) Medications During : Vitamin; Acetaminophen (Tylenol); Hydroxyzine (Vistaril) (09/02/2016 02:13:Darlene Keen RN) EGA per Dates: 39.5 (09/02/2016 02:13:QS system process) Admitted From: Home (09/02/2016 02:13:Darlene Keen RN) Reason for Induction: Not Applicable (09/02/2016 02:13:Darlene Keen RN) Records Available: Yes (09/02/2016 02:13:Darlene Keen RN) General Admission Reviewed By: WILLI Keen (09/02/2016 02:13:Darlene Keen RN) BELONGINGS/ADVANCED DIRECTIVES Other Belongings: see valuable consent (09/02/2016 02:13:Darlene Keen RN) Disposition of Belongings: Kept with Patient (09/02/2016 02:13:Darlene Keen RN) Advance Direct for Healthcare: No, and Wants No Information (09/02/2016 02:13:Darlene Keen RN) Durable Power of Application Defense Manager: No (09/02/2016 02:13:Darlene Keen RN) Living Will: No (09/02/2016 02:13:Darlene Keen RN) Organ Donor: Yes (09/02/2016 02:13:Darlene Keen RN) Pt Rights Information Given: Yes (09/02/2016 02:13:Darlene Keen RN) Pt Understands Pt Rights: Yes (09/02/2016 02:13:Darlene Keen RN) Patient Rights Comments: given in patient access (09/02/2016 02:13:Darlene Keen RN) LEARNING ASSESSMENT Knowledge Level: Understands L_D Process; Understands Care Activities; Had Pre-Hospital Education; Understands Diagnosis (09/02/2016 02:13:Darlene Keen RN) Barriers to Learning: None (09/02/2016 02:13:Darlene Keen RN) Learning Readiness: Motivated (09/02/2016 02:13:Darlene Keen RN) Learns Best By: 1 to 1 Instruction; Reading; Videos; Group Discussion; Demonstration (09/02/2016 02:13:Darlene Keen RN) Learning Needs: Labor and Delivery Process; Pain Management; Symptoms to Report; Treatment Plan; Medication; Diagnosis; Nutrition; Equipment; Care; Community Resources (09/02/2016 02:13:Darlene Keen RN) DOMESTIC VIOLANCE SCREENING Dom Viol Threatened/Hurt: No (09/02/2016 02:13:Darlene Keen RN) Hx of Abuse/Neglect past 2yrs: No (09/02/2016 02:13:Darlene Keen RN) Feel Unsafe Going Home: No (09/02/2016 02:13:Darlene Keen RN) Addt'l Observ Indicating Abuse: No (09/02/2016 02:13:Darlene Keen RN) Reason Unable to Complete Screen: N/A, Screen Completed (09/02/2016 02:13:Darlene Keen RN) Considered Personal Harm/Suicide: No (09/02/2016 02:13:Darlene Keen RN) NUTRITIONAL/FUNCTIONAL SCREENING Problem with Appetite >5 Days: No (09/02/2016 02:13:Darlene Keen RN) Chew/Swallow Difficulties: No (09/02/2016 02:13:Darlene Keen RN) Inappropriate Wt Gain/Loss: No (09/02/2016 02:13:Darlene Keen RN) Presence Skin Breakdown/Ulcer: No (09/02/2016 02:13:Darlene Keen RN) Special Diet: No (09/02/2016 02:13:Darlene Keen RN) Pt Requests Utility Clerk Visit: No (09/02/2016 02:13:Darlene Keen RN) Hx of Any of the Following?: N/A (09/02/2016 02:13:Darlene Keen RN) New Diagnosis of: N/A (09/02/2016 02:13:Darlene Keen RN) Requires Assist w/Ambulation: No (09/02/2016 02:13:Darlene Keen RN) Uses Assist Device to Ambulate: No (09/02/2016 02:13:Darlene Keen RN) Pt Requires Help w/ADL's: No (09/02/2016 02:13:Darlene Keen RN)
--- NOTE | 2016-09-03 06:01 | L&D General Admission ---
General Admit Datetime Report Generated by CPN: 09/03/2016 06:00 INFORMATION Patient Age: 25 (09/02/2016 01:28:QS system process) EDC: 09/04/2016 00:00 (09/02/2016 01:41:Darlene Keen RN) : 4 (09/02/2016 01:41:Darlene Keen RN) Para: 3 (09/02/2016 01:41:Darlene Keen RN) Term: 3 (09/02/2016 01:41:Darlene Keen RN) : 0 (09/02/2016 01:41:Darlene Keen RN) Spontaneous Abortions: 0 (09/02/2016 01:41:Darlene Keen RN) Induced Abortions: 0 (09/02/2016 01:41:Darlene Keen RN) Livin (09/02/2016 01:41:Darlene Keen RN) Baby, Number in Womb: 1 (09/02/2016 01:41:Darlene Keen RN) CARE Primary Undergraduate Internship: [employer] (09/02/2016 01:41:Darlene Keen RN) Undergraduate Internship Other: [employer] (09/02/2016 01:41:Darlene Keen RN) Prepregnancy Weight (lb): 150 (09/02/2016 01:41:Darlene Keen RN) Prepregnancy Weight (kg): 68.2 (09/02/2016 01:41:QS system process) Height (in): 64 (09/02/2016 13:40:QS system process) ALLERGIES Medication Allergy: Yes (09/02/2016 01:41:Darlene Keen RN) Medication Allergies: hydrocodone (09/02/2016) (09/02/2016 10:54:QS system process) Latex Allergy: No Latex Allergies (09/02/2016 01:41:Darlene Keen RN) Food Allergies: denies (09/02/2016 01:41:Darlene Keen RN) Environmental Allergies: denies (09/02/2016 01:41:Darlene Keen RN) COMMUNICATION Primary Language: Malawian (09/02/2016 01:41:Darlene Keen RN) Medical Tx Preferred Language: Malawian (09/02/2016 01:41:Darlene Keen RN) Malawian Communication Ability: Speaks Malawian; Reads Malawian (09/02/2016 01:41:Darlene Keen RN) DEMOGRAPHICS Address: [address] [place] [address], [address] [place] [address] (09/02/2016 01:28:QS system process) Zipcode: [address] (09/02/2016 01:28:QS system process) Home (09/02/2016 01:28:QS system process) SSN: [id number] (09/02/2016 01:28:QS system process) Next of Kin Name: ESTRELLITA SHELLEY (09/02/2016 01:28:QS system process) Next of Kin (09/02/2016 01:28:QS system process) Next of Kin Relationship: OR (09/02/2016 01:28:QS system process) Date of : 1990 (09/02/2016 01:28:QS system process) Marital Status: (09/02/2016 01:28:QS system process) Sex: Female (09/02/2016 01:28:QS system process) Race: (09/02/2016 01:28:QS system process) Ethnicity: Non- or (09/02/2016 01:28:QS system process) Anabaptism: None (09/02/2016 01:28:QS system process) DRUG AND ALCOHOL USE Alcohol: No (09/02/2016 01:41:Darlene Keen RN) Cigarettes: Never Smoker. [id number] (09/02/2016 01:41:Darlene Keen RN) Marijuana: No (09/02/2016 01:41:Darlene Keen RN) Cocaine: No (09/02/2016 01:41:Darlene Keen RN) Other Illicit Drugs: No (09/02/2016 01:41:Darlene Keen RN) VACCINE HISTORY Influenza Vaccine: No (09/02/2016 01:41:Darlene Keen RN) Pneumococcal Vaccine: No (09/02/2016 01:41:Darlene Keen RN) Tetanus Vaccine: Yes (09/02/2016 01:41:Darlene Keen RN) Tdap Vaccine: Yes (09/02/2016 01:41:Darlene Keen RN) Hepatitis B Vaccine: Yes (09/02/2016 01:41:Darlene Keen RN) Compensation Adjuster: [facility] (09/02/2016 01:41:Darlene Keen RN) Feeding Preference: Breast (09/02/2016 01:41:Francesca Hwang RN) Benefit of Breast Feed Discussed: Yes (09/02/2016 01:41:Darlene Keen RN) Circumcision: Yes (09/02/2016 01:41:Darlene Keen RN) Classes Attended: No (09/02/2016 01:41:Darlene Keen RN) Tubal Ligation: Yes (09/02/2016 01:41:Darlene Keen RN) Tubal Authorization Signed: Yes (09/02/2016 01:41:Darlene Keen RN) Consent: N/A (09/02/2016 01:41:Darlene Keen RN) Consent Signed: N/A (09/02/2016 01:41:Darlene Kossmann, RN) Pain Management Plans: Epidural (09/02/2016 01:41:Darlene Keen RN) Plans for Labor and Delivery: None (09/02/2016 01:41:Darlene Keen RN) Support Person: Estrellita Shelley (09/02/2016 01:41:Darlene Keen RN) Support Person Relationship: Sister (09/02/2016 01:41:Darlene Keen RN) Cultural/Spritual Practice: No (09/02/2016 01:41:Darlene Keen RN) Spir/Cult Dietary Needs: No (09/02/2016 01:41:Darlene Keen RN) LIVING SITUATION/DISCHARGE PLAN Living Arrangements: House (09/02/2016 01:41:Darlene Keen RN) Adequate Access to:: Electric; Heat; Refrigeration; Plumbing/Running water; Phone; Transportation (09/02/2016 01:41:Darlene Keen RN) WIC Program: Needs referral (09/02/2016 01:41:Darlene Keen RN) Discharge Slide Maker Person: Estrellita (09/02/2016 01:41:Darlene Keen RN) Person to Help after Discharge: Estrellita (09/02/2016 01:41:Darlene Keen RN) Currently Using Commun Resources: Yes (09/02/2016 01:41:Darlene Keen RN) Specify Current Resource Used: medicaid and food stamps (09/02/2016 01:41:Darlene Keen RN) Outside Agency/Director Of Occupational Therapy: No (09/02/2016 01:41:Darlene Keen RN) Car Seat for Discharge: Yes (09/02/2016 01:41:Darlene Keen RN) Adoption Requested: No (09/02/2016 01:41:Darlene Keen RN) Pt Contact w/[facility] : N/A (09/02/2016 01:41:Darlene Keen RN) LABS Blood Type: A Positive (09/02/2016 01:41:Darlene Keen RN) Hemoglobin: 10.0 L (09/02/2016 02:19:QS system process) Hematocrit: 31.6 L (09/02/2016 02:19:QS system process) MCV: 80 (09/02/2016 02:19:QS system process) Group Beta Strep: negative (09/02/2016 01:41:Darlene Keen RN) Gonorrhea: Negative (09/02/2016 01:41:Darlene Keen RN) Chlamydia: Negative (09/02/2016 01:41:Darlene Keen RN) RPR/VDRL: Nonreactive (09/02/2016 01:41:Darlene Keen RN) HIV Results: negative (09/02/2016 01:41:Darlene Keen RN) Hepatitis B: Negative (09/02/2016 01:41:Darlene Keen RN) Rubella: Non-Immune (09/02/2016 01:41:Darlene Keen RN) OB/PREVIOUS HISTORY Previous Procedures: Ultrasound; NST (09/02/2016 01:41:Darlene Keen RN) Current Procedures: Ultrasound; NST (09/02/2016 01:41:Darlene Keen RN) History of Previous : No (09/02/2016 01:41:Darlene Keen RN) History of Gestational Diabetes: No (09/02/2016 01:41:Darlene Keen RN) History of PIH: No (09/02/2016 01:41:Darlene Keen RN) History of Incompetent Cervix: No (09/02/2016 01:41:Darlene Keen RN) History of Placenta Previa/Abrup: No (09/02/2016 01:41:Darlene Keen RN) History of Macrosomia: No (09/02/2016 01:41:Darlene Keen RN) History of IUGR: No (09/02/2016 01:41:Darlene Keen RN) History of Hemorrhage: No (09/02/2016 01:41:Darlene Keen RN) History of Loss/Stillborn: No (09/02/2016 01:41:Darlene Keen RN) History of : No (09/02/2016 01:41:Darlene Keen RN) History of D (Rh) Sensitization: No (09/02/2016 01:41:Darlene Keen RN) History Recurrent Loss/Stillborn: No (09/02/2016 01:41:Darlene Keen RN) History Depression/PP Depression: No (09/02/2016 01:41:Darlene Keen RN) History of Uterine Anomaly/PAUL: No (09/02/2016 01:41:Darlene Keen RN) History of Infertility: No (09/02/2016 01:41:Darlene Keen RN) History of ART Treatment: No (09/02/2016 01:41:Darlene Keen RN) History of PAUL: No (09/02/2016 01:41:Darlene Keen RN) Comments Obstetrical History: g1- 2007, , male g2- 2009, , male g3-2016, , male g4-current (09/02/2016 01:41:Darlene Keen RN) MEDICAL HISTORY Med Hx Diabetes: No (09/02/2016 01:41:Darlene Keen RN) Med Hx Hypertension: No (09/02/2016 01:41:Darlene Keen RN) Med Hx Heart Disease: No (09/02/2016 01:41:Darlene Keen RN) Med Hx Autoimmune Disorder: No (09/02/2016 01:41:Darlene Keen RN) Med Hx Kidney Disease/UTI: No (09/02/2016 01:41:Darlene Keen RN) Med Hx Neurologic/Epilepsy: No (09/02/2016 01:41:Darlene Keen RN) Med Hx Psychiatric Disorders: No (09/02/2016 01:41:Darlene Keen RN) Med Hx Hepatitis/Liver Disease: No (09/02/2016 01:41:Darlene Keen RN) Med Hx Varicosities/Phlebitis: No (09/02/2016 01:41:Darlnee Keen RN) Med Hx Thyroid Dysfunction: No (09/02/2016 01:41:Darlene Keen RN) Med Hx Trauma/Violence: No (09/02/2016 01:41:Darlene Keen RN) Med Hx Blood Transfusion: No (09/02/2016 01:41:Darlene Keen RN) Med Hx Pulmonary (Asthma,TB): No (09/02/2016 01:41:Darlene Keen RN) Med Hx Breast: No (09/02/2016 01:41:Darlene Keen RN) Med 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 (09/02/2016 01:41:Darlene Keen RN) Med Hx Hospitalization/Surgery: Yes (09/02/2016 01:41:Darlene Keen RN) Med Hx Anesthetic Complications: No (09/02/2016 01:41:Darlene Keen RN) Med Hx Abnormal Pap Smear: No (09/02/2016 01:41:Darlene Keen RN) Other Medical Diseases: No (09/02/2016 01:41:Darlene Keen RN) Med Hx Significant Family Hx: No (09/02/2016 01:41:Darlene Keen RN) Details of Med/Surg Hx: childbirth x 3 (09/02/2016 01:41:Darlene Keen RN) INFECTIOUS HISTORY Inf Hx Gonorrhea: No (09/02/2016 01:41:Darlene Keen RN) Inf Hx Chlamydia: No (09/02/2016 01:41:Darlene Keen RN) Inf Hx Syphilis: No (09/02/2016 01:41:Darlene Keen RN) Inf Hx HIV/AIDS: No (09/02/2016 01:41:Darlene Keen RN) Inf Hx Human Papilloma Virus: No (09/02/2016 01:41:Darlene Keen RN) Inf Hx Pt/Partner Genital Herpes: No (09/02/2016 01:41:Darlene Keen RN) Inf Hx Tuberculosis/Exposure: No (09/02/2016 01:41:Darlene Keen RN) Inf Hx Hepatitis B,C: No (09/02/2016 01:41:Darlene Keen RN) Inf Hx Rash or Viral Illness: No (09/02/2016 01:41:Darlene Keen RN) GENETIC HISTORY Gen Hx Age >=35 at MARY: No (09/02/2016 01:41:Darlene Keen RN) Gen Hx Thalassemia: No (09/02/2016 01:41:Darlene Keen RN) Gen Hx Congenital Heart Defect: No (09/02/2016 01:41:Darlene Keen RN) Gen Hx Neural Tube Defect: No (09/02/2016 01:41:Darlene Keen RN) Gen Hx Down's Syndrome: No (09/02/2016 01:41:Darlene Keen RN) Gen Hx Ananth-Sachs: No (09/02/2016 01:41:Darlene Keen RN) Gen Hx Nelson: No (09/02/2016 01:41:Darlene Keen RN) Gen Hx Familial Dysautonomia: No (09/02/2016 01:41:Darlene Keen RN) Gen Hx Sickle Cell Disease/Trait: No (09/02/2016 01:41:Darlene Keen RN) Gen Hx Hemophilia/Blood Disorder: No (09/02/2016 01:41:Darlene Keen RN) Gen Hx Muscular Dystrophy: No (09/02/2016 01:41:Darlene Keen RN) Gen Hx Cystic Fibrosis: No (09/02/2016 01:41:Darlene Keen RN) Gen Hx Huntingtons Chorea: No (09/02/2016 01:41:Darlene Keen RN) Gen Hx Mental Retardation/Autism: No (09/02/2016 01:41:Darlene Keen RN) Gen Hx Tested for Fragile X: No (09/02/2016 01:41:Darlene Keen RN) Gen Hx Other Inher/Chromosomal: No (09/02/2016 01:41:Darlene Keen RN) Gen Hx Maternal Metabolic DO: No (09/02/2016 01:41:Darlene Keen RN) Gen Hx Pt Father or FOB Defect: No (09/02/2016 01:41:Darlene Keen RN) Gen Hx Other Genetic History: Yes (09/02/2016 01:41:Darlene Keen RN) Gen Hx Drugs/Meds since LMP: Yes (09/02/2016 01:41:Darlene Keen RN) Gen Hx Medications: vitamins, tylenol, benadryl, zofran, iron (09/02/2016 01:41:Darlene Keen RN) Details of Genetic History: husbands father has parkinson (09/02/2016 01:41:Darlene Keen RN)
--- NOTE | 2016-09-03 06:16 | L&D Care Plan ---
LD CARE PLANS Datetime Report Generated by CPN: 09/03/2016 06:15 Datetime: 09/02/2016 02:00 Pain State: Risk For (Darlene Keen RN) Related To: Labor and Delivery Process; Treatment and Procedures; Post (Darlene Keen RN) Goal(s): Patients Pain will be Assessed and Managed; Patient will Verbalize Adequate Relief of Pain or the Ability to [place] with Current Pain (Darlene Keen RN) Interventions: Assess Pain Severity on Scale of 0 (None) to 5 (Severe); Assess Type, Location and Intensity of Pain Each Time Client Reports Discomfort and Notify Provider if Unusal Pain Develops; Encourage Proper Breathing and Relaxation Techniques; Offer Alternatives Such as Repositioning, Calm Environment, Massages, Diversional Activities, Ice Pack, Splinting, and Ambulation; Administer Analgesics as Ordered; Assist with Epidural Placement as Appropriate; Evaluate Therapeutic Effectiveness of Medication and Treatments (Darlene Keen RN) Outcome: Patient will Report Absence or Relief of Pain Consistent with Established Pain Goal (Darlene Keen RN) Status: Ongoing (Darlene Keen RN) Outcome: Patient will have a Decrease in Signs and Symptoms of Discomfort (Darlene Keen RN) Status: Ongoing (Darlene Keen RN) Outcome: Pain will be Controlled During Procedures (Darlene Keen RN) Status: Ongoing (Darlene Keen RN) Anxiety State: Risk For (Darlene Keen RN) Related To: Labor and Delivery Process; Medical Interventions (Darlene Keen RN) Goal(s): Patient will have Decreased Anxiety and be able to Function at Acceptable Levels (Darlene Keen RN) Interventions: Assess Verbal and Nonverbal Behavioral Indicators of Anxiety; Assist Patient to Identify and Verbalize Symptoms of Anxiety; Identify and Demonstrate Techniques to Control Anxiety; Assist Patient with Coping Mechanisms to Manage Anxiety; Provide Theraputic Touch for the Patient; Explain to Patient, Using a Calm Reassuring Approach and Nonmedical Terms, All Activities, Procedures, and Concerns; Instruct Patient and Family about Post Discharge Care, Limitations, Symptoms to Report and Resources Available (Darlene Keen RN) Outcome: Patient will Identify, Verbalize and Demonstrate Techniques to Control Anxiety (Darlene Keen RN) Status: Ongoing (Darlene Keen RN) Outcome: Patient's Posture, Facial Expressions, Gestures and Activity Level will Reflect Decreased Anxiety (Darlene Keen RN) Status: Ongoing (Darlene Keen RN) Outcome: Patient will Verbalize a Sense of Control and/or Acceptance of the Situation (Darlene Keen RN) Status: Ongoing (Darlene Keen RN) Outcome: Patient will Identify and Utilize Support Person (Darlene Keen RN) Status: Ongoing (Darlene Keen RN) Knowledge Deficit State: Risk For (Darlene Keen RN) Related To: Labor and Delivery Process; Treatment and Procedures; Feeding and Care (Darlene Keen RN) Goal(s): Patient will Accurately Verbalize Understanding of Plan of Care and Treatment; Patient and Family will Accurately Verbalize Understanding of the Disease Process (Darlene Keen RN) Interventions: Assess Motivation and Willingness of Patient/Family to Learn; Assess Preferred Learning Mode: One to One Instruction, Reading, Videos, Group Discussion or Demonstration; Assess Barriers to Learning: Pain, Emotional State, Language Barrier, Cognitive Impairment, Visual or Hearing Deficits; Assess Patient and Family Knowledge of Disease Process, Medications and Treatment; Discuss Therapy and/or Treatment Options, Describe Rationale Behind Management, Therapy and Treatment Recommendations; Instruct Patient and Family on Signs and Symptoms to Report; Instruct Patient and Family on Medication Effects and Side Effects; Provide Appropriate and Timely Education Using Multiple Techniques; Provide Patient and Family with Support Group Information and Resources; Give Clear and Thorough Explanations and Demonstrations (Darlene Keen RN) Outcome: Patient and Family will Verbalize Understanding of Condition, Treatment and Signs and Symptoms to Report (Darlene Keen RN) Status: Ongoing (Darlene Keen RN) Outcome: Patient will Identify Perceived Learning Needs and Express Motivation to Learn (Darlene Keen RN) Status: Ongoing (Darlene Keen RN) Outcome: Patient will Verbalize Understanding of Desired Content, and/or Performs Desired Skill Prior to Discharge (Darlene Keen RN) Status: Ongoing (Darlene Keen RN) Infection State: Risk For (Darlene Keen RN) Related To: Prolonged Labor or Induction; Premature/Prolonged Rupture of Membranes; Invasive Procedures (Darlene Keen RN) Goal(s): The Patient will be Free of Infection, Vital Signs Stable and Lab Work within Normal Parameters (Darlene Keen RN) Interventions: Instruct and Reinforce Proper Handwashing, Hygiene, and Care Techniques to Patient and Family; Monitor Vital Signs; Monitor Patient for the Following Signs of Infection: Fever, Abdominal Tenderness, Unusual Discharge; Monitor Aminiotic Fluid, Urine and Lochia for Color and Odor; Observe Wounds, Incisions and Invasive Line Sites for Redness, Drainage and Edema; Assess IV Sites per Hospital Policy; Monitor Lab and Test Results and Notify Provider of Abnormal Findings; Assess Nutritional Status and Promote Good Nutrition (Darlene Keen RN) Outcome: Patient will Remain Free of Infection (Darlene Keen RN) Status: Ongoing (Darlene Keen RN) Outcome: Infection will be Recognized Early to Allow for Prompt Treatment (Darlene eKen RN) Status: Ongoing (Darlene Keen RN) Outcome: Patient will have Vital Signs Within Expected Range (Darlene Keen RN) Status: Ongoing (Darlene Keen RN) Fluid Volume State: Risk For (Darlene Keen RN) Related To: Surgical Procedures; Prolonged Labor or Induction; Hemorrhage; Anesthesia (Darlene Keen RN) Goal(s): Patient will Achieve and Maintain a Balanced Fluid Volume Status; Hemodynamically Stable (Darlene Keen RN) Interventions: Monitor Vital Signs; Auscultate Breath Sounds; Monitor Patient for Skin Turgor, Mucous Membranes, Dry Skin, Weakness, Headaches and Confusion; Provide Oral Fluids as Ordered; Initiate and Maintain Intravenous Fluids as Ordered; Monitor Intake and Output as Indicated Per Patient Status; Accurately Measure Blood Loss; Monitor Lab and Test Results as Obtained and Notify Provider of Abnormal Findings; Monitor Patient's Weight (Darlene Keen RN) Outcome: Patient will have Clear Lung Sounds (Darlene Keen RN) Status: Ongoing (Darlene Keen RN) Outcome: Patient will have Vital Signs within Expected Range (Darlene Keen RN) Status: Ongoing (Darlene Keen RN) Outcome: Urine Output will be within Expected Range (Darlene Keen RN) Status: Ongoing (Darlene Keen RN) Outcome: Patient will have Minimal Generalized or Upper Extremity Edema (Darlene Keen RN) Status: Ongoing (Darlene Keen RN) Injury State: Risk For (Darlene Keen RN) Related To: Labor and Delivery Process; Anesthesia; Risk to Status; Uteroplacental Perfusion; Hemorrhage, Placenta Previa and or Placental Abruption (Darlene Keen RN) Goal(s): Patient will Remain Free from Injury (Darlene Keen RN) Interventions: Monitoring as per Hospital Protocol; Assess Neurological Status; Perform Risk Assessment of Patients with Induction and ; Perform Fall Risk Assessment and Prevention per Hospital Protocol; Perform DVT Risk Assessment and Prophylaxis per Hospital Protocol; Ensure that Oxygen, Suction, and Resuscitation Medications and Equipment are Readily Available; Confirm Patient ID Prior to Procedure(s) and Medication Administration per Hospital Policy (Darlene Keen RN) Outcome: Successful Fall Risk Prevention (Darlene Keen RN) Status: Ongoing (Darlene Keen RN) Outcome: Patient will Deliver Infant without Adverse Sequela (Darlene Keen RN) Status: Ongoing (Darlene Keen RN) Outcome: Patient's Neurological Status will Remain Stable (Darlene Keen RN) Status: Ongoing (Darlene Keen RN) Impaired Skin Integrity State: Risk For (Darlene Keen RN) Related To: Vaginal Delivery; Surgical Procedures; Invasive Procedures (Darlene Keen RN) Goal(s): Patient will Maintain Optimal Skin Integrity, Free of Breakdown, Injury or Infection (Darlene Keen RN) Interventions: Complete Screening for Pressure Ulcer Risk and Initiate Protocol per Hospital Policy; Monitor Site of Skin Impairment for Color Changes, Redness, Swelling, Warmth, Pain or Other Signs of Infection; Encourage and Assist with Position Changes; Monitor Patient's Mobility Status; Provide Adequate Nutrition and Fluids; Teach Patient Appropriate Hygienic Care; Teach Patient/Family Skin Care Management (Darlene Keen RN) Outcome: Patient will not have Evidence of Injury Such as Skin Breakdown, Scrapes, Cuts, or Bruising (Darlene Keen RN) Status: Ongoing (Darlene Keen RN) Outcome: Patient will Report Any Altered Sensation or Pain at Site of Skin Impairment (Darlene Keen RN) Status: Ongoing (Darlene Keen RN) Outcome: Patients Incisions and Wounds will be without Signs or Symptoms of Infection (Darlene Keen RN) Status: Ongoing (Darlene Keen RN) Outcome: Patient will Demonstrate Understanding of Plan to Heal Skin and Prevent Reinjury and Verbalize Risk Factors (Darlene Keen RN) Status: Ongoing (Darlene Keen RN) Parenting Impaired State: Risk For (Darlene Keen RN) Related To: Labor and/or ; Apprehension Related to [place] Care (Darlene Keen RN) Goal(s): Parents will Demonstrate Progressive Parenting Behaviors (Darlene Keen RN) Interventions: Assess for Adequacy of Support Systems; Observe and Encourage Patient/Family Attachment and Bonding Activities and Provide Feedback; Assess Patient/Family Understanding of 's Condition and Provide Accurate Information About Condition, Treatment and Prognosis; Assess for Patient/Family Behaviors that May Indicate Lack of Attachment; Provide a Safe Non-judgmental Environment for Patient/Family to Discuss Concerns; Promote Patient/Family Cohesiveness by Encouraging Discussion and Problem Solving; Operational Risk Consultant Referral as Indicated (Darlene Keen RN) Outcome: Patient/Family will Discuss Their Fears and the Possibility of Difficulties with Parenting (Darlene Keen RN) Status: Ongoing (Darlene Keen RN) Outcome: Patient/Family will Exhibit Appropriate Bonding Behaviors with (Darlene Keen RN) Status: Ongoing (Darlene Keen RN) Outcome: Patient/Family will Verbalize Positive Feelings and Demonstrate Affection and Caring Toward (Darlene Keen RN) Status: Ongoing (Darlene Keen RN) Nutrition State: Risk For (Darlene Keen RN) Related To: ; (Darlene Keen RN) Goal(s): Patient will have an Intake of Nutrients Sufficient to Meet Metabolic Needs (Darlene Keen RN) Interventions: Nutritional Screening and Assessment per Hospital Policy; Consult Checkout Supervisor for Further Assessment and Recommendations Regarding Food Preferences and Nutritional Support; Allow Patient to Plan and Order Diet when Possible; Monitor Laboratory Values That Indicate Nutritional Well-being; Consult Food Handler for Nutritional Support Regarding Requirements; Document Actual Weight Initially and Weekly (Do Not Estimate); Encourage Patient Participation in Maintaining a Food Log as Indicated; Educate Patient on the Importance of Maintaining an Adequate Caloric Intake (Darlene Keen RN) Outcome: Patient will Receive Adequate Calories and Fluid Volume to Meet Metabolic Needs (Darlene Keen RN) Status: Ongoing (Darlene Keen RN) Outcome: Patient will Select Foods or Meals that Support Adequate Nutrition (Darlene Keen RN) Status: Ongoing (Darlene Keen RN) Grieving State: Not Applicable (Darlene Keen RN) Additional Care Plan State: Risk For (Darlene Keen RN) Nursing Diagnosis or r/t: (Darlene Keen RN) Goal(s): -breastfeed on demand, every 2-3 hours -no pacifiers -good latch (Darlene Keen RN) Interventions: -telesales consultant -assist as needed (Darlene Keen RN) Outcome Status: Ongoing (Darlene Keen RN)
[2016-09-03] MEDS: IBUPROFEN 800 MG TABLET PO SCH ×3 (06:44→21:42)
[2016-09-03 07:48] LABS: HEMATOCRIT 29.1 % (36.0-47.0); HEMOGLOBIN 9.4 g/dL (12.0-15.5); HGB HCT DIFFERENCE -0.9; MEAN CORPUSCULAR HGB CONC 32.2 g/dL (32.0-36.0); MEAN CORPUSCULAR VOLUME 81 fl (80-97); RED BLOOD COUNT 3.61 10^6/uL (3.72-5.28); RED CELL DISTRIBUTION WIDTH 16.6 % (11.5-14.0); WHITE BLOOD COUNT 11.9 10^3/uL (4.0-10.5)
--- NOTE | 2016-09-03 08:58 | PDOC PROGRESS REPORT ---
Subjective-OB Subjective: Post Delivery Day: 1 25 year old. Denies any needs at this time, lochia is stable, pain well controlled, voiding without difficulty. Physical Exam (OB) Vital Signs: Temp Pulse Resp BP Pulse Ox 98.1 F 83 16 132/75 H 100 09/03/16 07:49 09/03/16 07:49 09/03/16 07:49 09/03/16 07:49 09/03/16 07:49 Intake & Output 09/02/16 09/03/16 09/04/16 06:59 06:59 06:59 Weight 85 kg - PIH/Pre-Eclampsia Clonus: Negative Headache: Absent Epigastric Pain: No Visual Changes: No - Lochia Lochia Amount: Small 10-25 ml Lochia Color: Rubra/Red - Abdomen Description: Soft, Round Hernia Present: No Fundal Description: Firm Fundal Height: u/u - u/2 Objective-Diagnostic Laboratory: 09/03/16 07:12 09/03/16 07:12 WBC 11.9 H RBC 3.61 L Hgb 9.4 L Hct 29.1 L MCV 81 MCH 26.0 L MCHC 32.2 RDW 16.6 H Plt Count 262 Assessment and Plan(PN) - Assessment and Plan (1) Vaginal delivery Is this a current diagnosis for this admission?: YesPlan: routine pp care (2) Acute blood loss anemia Is this a current diagnosis for this admission?: YesPlan: ferrous sulfate increase dietary iron - Time Spent with Patient Time with patient: Less than 15 minutes Critical Time spent with patient: Less than 15 minutes Medications reviewed and adjusted accordingly: Yes - Disposition Anticipated Discharge: Home Within: within 24 hours
[2016-09-03] MEDS: ACETAMINOPHEN WITH CODEINE #3 TABLET PO PRN ×2 (09:40→20:07)
[2016-09-03] MEDS: FERROUS SULFATE 325 MG TABLET PO SCH ×2 (09:40→17:31)
[2016-09-03] MEDS: PRENATAL VITAMIN W-O CA NO5/FE FUMARATE/FA CAPSULE PO SCH (09:41)
[2016-09-03] MEDS: SENNOSIDES/DOCUSATE 8.6-50 MG 1 EACH TABLET PO SCH (09:41)
[2016-09-03] MEDS: DOCUSATE SODIUM 100 MG CAPSULE PO SCH ×2 (09:41→17:31)
--- NOTE | 2016-09-03 09:58 | Delivery Summary ---
Del Sum A-C Datetime Report Generated by CPN: 09/03/2016 09:58 ADMISSION DATA Chief Complaint: Uterine Contractions; Suspected Ruptured Membranes Indication for Induction: Not Applicable Admission Impression: Term, Intrauterine ; Ruptured Membranes Admit Provider Comments: Term SROM. Pitocin as necessary. poor care DELIVERY PERSONNEL Delivery Doctor:: Shirlene Dailey MD Labor and Delivery Nurse:: Darlene Keen RN Production Cloth Cutter/CRITICAL POWER INSTALL TECHNICIAN: Lizett Lau, ST MATERNAL INFORMATION Delivery Anesthesia: Epidural Medications After Delivery: Pitocin Bolus-Please Comment; Pitocin Drip 20 Units/1000ml NSS; Other-Please Comment Meds After Delivery Comment: Pitocin 20 units/liter ivf bolus x 1 liter, cytotec 1000mcg pr Maternal Complications: None Provider Comments: over intact perineum, no lacs. live male ap 9/10. spontaneous intact placenta 3vc. no complications LABOR SUMMARY EDC: 09/04/2016 00:00 No. Babies in Womb: 1 Attempted: No Labor Anesthesia: Epidural LABOR INFORMATION Reason for Induction: Not Applicable Onset of Labor: 09/02/2016 00:30 Complete Dilatation: 09/02/2016 06:28 Oxytocin: Augmentation Group B Beta Strep: negative Steroids Given: None Reason Steroids Not Administered: Not Applicable MEMBRANES Membranes Rupture Method: Spontaneous Rupture of Membranes: 09/02/2016 00:30 Length of Rupture (hr): 6.22 Amniotic Fluid Color: Clear Amniotic Fluid Amount: Moderate Amniotic Fluid Odor: Normal STAGES OF LABOR Stage 1 hr: 5 Stage 1 min: 58 Stage 2 hr: 0 Stage 2 min: 15 Stage 3 hr: 0 Stage 3 min: 4 Total Time in Labor hr: 6 Total Time in Labor min: 17 VAGINAL DELIVERY Episiotomy: None Laceration Extension: N/A Laceration Type: None Laceration Repair: Not Applicable Sponge Count Correct: N/A Sharps Count Correct: Yes CSECTION DELIVERY Primary Indication: N/A Secondary Indication: N/A CSection Incision: N/A BABY A INFORMATION Infant Delivery Date/Time: 09/02/2016 06:43 Method of Delivery: Vaginal Born in Route : No : N/A Forceps: N/A Vacuum Extraction: N/A PRESENTATION/POSITION BABY A Presentation: Cephalic Cephalic Presentation: Vertex Vertex Position: Left Occipital Anterior Breech Presentation: N/A PLACENTA INFORMATION BABY A Placenta Delivery Time : 09/02/2016 06:47 Placenta Method of Delivery: Spontaneous Placenta Status: Delivered SCORES BABY A Heart Rate 1 min: >100 bpm Resp Effort 1 min: Good Cry Reflex Irritability 1 min: Cough or Sneeze or Pulls Away Muscle Tone 1 min: Active Motion Color 1 min: Body [place], Extremities Blue Resuscitation Effort 1 min: Tactile Stimulation SCORE 1 MIN: 9 Heart Rate 5 min: >100 bpm Resp Effort 5 min: Good Cry Reflex Irritability 5 min: Cough or Sneeze or Pulls Away Muscle Tone 5 min: Active Motion Color 5 min: Completely [place] Resuscitation Effort 5 min: Tactile Stimulation SCORE 5 MIN: 10 INFORMATION BABY A Gestational Age at Delivery: 39.5 Gestational Status: Full Term- 39- 40.6 Weeks Infant Outcome : Liveborn Infant Condition : Stable Sex: Male IDENTIFICATION BABY A Verification Date/Time: 09/02/2016 07:24 ID Band Number: [id number] Mother's Name Verified: Yes Infant RN Verifying Infant: RN Osmani Additional Verifying Personnel: RN Mary Kayermiasmsgo WEIGHT/LENGTH BABY A Birthweight (gm): 3374 Weight (lb): 7 Infant Weight (oz): 7 Infant Length (in): 20.00 Length (cm): 50.80 CORD INFORMATION BABY A No. Cord Vessels: 3 Nuchal Cord : Around Neck x1, Loose Cord Blood Taken: Yes-For Storage (Mom's Blood type +) Infant Suction: Mouth; Nose ASSESSMENT BABY A Infant Complications: Multiple Variable Decels Physical Findings at Delivery: Within Normal Limits Respirations: Appears Normal Skin to Skin: Yes Skin to Skin Time (min): 20 Switchboard Wire Worker Helper/ALS Called : No Transferred To: Remains with Mother BABY B INFORMATION : N/A SIGNATURES Signature: with User ID: [email or web address]
[2016-09-04] MEDS: IBUPROFEN 800 MG TABLET PO SCH ×2 (06:12→13:12)
[2016-09-04 08:07] VITALS: BP 113/77
--- NOTE | 2016-09-04 10:09 | PDOC PROGRESS REPORT ---
Subjective-OB Subjective: Post Delivery Day: 25 year old. Denies any needs at this time Doing well, ready to go home, breast feeding, ambulating, diet taken well Physical Exam (OB) Vital Signs: Temp Pulse Resp BP Pulse Ox 98.0 F 77 14 113/77 99 09/04/16 08:51 09/04/16 08:51 09/04/16 08:51 09/04/16 07:37 09/04/16 08:51 Intake & Output 09/03/16 09/04/16 09/05/16 06:59 06:59 06:59 Intake Total 880 Balance 880 - PIH/Pre-Eclampsia Clonus: Negative Headache: Absent Epigastric Pain: No Visual Changes: No - Lochia Lochia Amount: Scant < 10 ml Lochia Color: Rubra/Red - Abdomen Description: Tender, Soft Hernia Present: No Fundal Description: Firm, Midline Fundal Height: u/u - u/2 Objective-Diagnostic Laboratory: 09/03/16 07:12 Assessment and Plan(PN) - Assessment and Plan (1) Vaginal delivery Is this a current diagnosis for this admission?: Yes (2) Acute blood loss anemia Is this a current diagnosis for this admission?: Yes - Time Spent with Patient Time with patient: Less than 15 minutes Medications reviewed and adjusted accordingly: Yes - Disposition Anticipated Discharge: Home Within: Other - home today
[2016-09-04] MEDS: PRENATAL VITAMIN W-O CA NO5/FE FUMARATE/FA CAPSULE PO SCH (10:12)
[2016-09-04] MEDS: DOCUSATE SODIUM 100 MG CAPSULE PO SCH (10:13)
[2016-09-04] MEDS: FERROUS SULFATE 325 MG TABLET PO SCH (10:13)
[2016-09-04] MEDS: SENNOSIDES/DOCUSATE 8.6-50 MG 1 EACH TABLET PO SCH (10:13)
--- NOTE | 2016-09-04 10:13 | PDOC DISCHARGE SUMMARY ---
Final Diagnosis Discharge Date: 09/04/16 - Final Diagnosis (1) Vaginal delivery Is this a current diagnosis for this admission?: Yes (2) Acute blood loss anemia Is this a current diagnosis for this admission?: Yes Discharge Data - Discharge Medication Home Medications: Diphenhydramine HCl [Benadryl] 25 mg PO Q8H PRN #15 capsule 07/03/16 Pnv95/Ferrous Fumarate/FA [ Vitamin Tablet] 1 tab PO DAILY 09/02/16 Gestational Age: 39.5 Reason(s) for Admission: PROM - Poor care Procedures: Ultrasound Intrapartum Procedure(s): Spontaneous Vaginal Delivery - [place] Data Baby 1 Male at 1 minute: 9 at 5 minutes: 10 Weight: 3.374 kg Home with Mother: Yes Complications: No - Diagnosis Test Laboratory: Temp Pulse Resp BP Pulse Ox 98.0 F 77 14 113/77 99 09/04/16 08:51 09/04/16 08:51 09/04/16 08:51 09/04/16 07:37 09/04/16 08:51 09/02/16 09/02/16 09/03/16 01:39 02:19 07:12 RBC 3.97 3.61 L Hgb 10.0 L 9.4 L Hct 31.6 L 29.1 L Urine Opiates Screen NEGATIVE - Discharge information/Instructions Discharge Activity: Activity As Tolerated, No Lifting Over 10 Pounds, Pelvic Rest, No tub bath Discharge Diet: As Tolerated, Regular Disposition: HOME, SELF-CARE Follow up with: [facility] in: 4, Weeks
== END 2016-09-04 13:38 | disposition home or self-care (01) | DRG 775 ==
LOC: LC 01:28 → LR 02:03 → 2S 09:53
PROVIDERS: ADMIT Obstetrics & Gynecology; ATTEND Obstetrics & Gynecology
PROC: 10E0XZZ Delivery of Products of Conception, External Approach (ICD-10-PCS; principal; 2016-09-02)
PROC: 4A1HXCZ Monitoring of Products of Conception, Cardiac Rate, External Approach (ICD-10-PCS; 2016-09-02)
PROC: 3E033VJ Introduction of Other Hormone into Peripheral Vein, Percutaneous Approach (ICD-10-PCS; 2016-09-02)
DX: O69.81X0 Labor and delivery complicated by cord around neck, without compression, not applicable or unspecified (principal); D62 Acute posthemorrhagic anemia; O76 Abnormality in fetal heart rate and rhythm complicating labor and delivery; O99.02 Anemia complicating childbirth; Z88.6 Allergy status to analgesic agent; Z3A.39 39 weeks gestation of pregnancy; Z37.0 Single live birth
CPT/HCPCS: 36415; 80307; 81005; 84112; 85025; 85027; 86592; 86850; 86900; 86901; J2590; J3490